=== PATIENT | female | born 1955 | race Caucasian/White ===

== ENCOUNTER 2021-07-03 14:10 | Emergency (ER) | payer MEDICARE, SELFPAY ==
[2021-07-03 14:11] VITALS: BP 124/70; PULSE 89; RESP 18; TEMP 35.8; O2SAT 97; BMI 28.9
--- NOTE | 2021-07-03 14:25 | RAD_ITS ---
EXAM: XR SACRUM AND COCCYX, 2 OR MORE VIEWS CLINICAL INDICATION: trauma PAIN TECHNIQUE: Frontal and lateral views of the sacrum and coccyx. This report was created using [employer] report generation technology. COMPARISON: None. FINDINGS: SACRUM/COCCYX: Unremarkable. No displaced fracture. No destructive or sclerotic lesions. Note that overlapping bowel shadows may however obscure fine detail in the frontal view. Sacroiliac joints are unremarkable. DISC SPACES: Degenerative findings of the hips. Degenerative findings in the lumbar spine. SOFT TISSUES: Unremarkable. No soft tissue swelling or gas. VASCULATURE: There are calcified phleboliths in the pelvis. This makes differentiation with distal ureteral stones difficult. RAD/Sacrum-Coccyx min 2 Views IMPRESSION: Degenerative findings of the hips. Electronically Signed: Basilio Peralta MD at 14:58 EDT Reading Location ID and State: [facility] / [place] , Service support ,
--- NOTE | 2021-07-03 14:32 | EX.ED.UPPERE ---
HPI History of Present Illness HPI Narrative: Patient fell down the steps, she dislocated PIP joints of her right fifth digit she also fell onto her buttocks and has coccyx pain. She has an abrasion to the left forearm. No head injury no neck pain no loss of consciousness. This was a mechanical fall. No other injury. Chief Complaint: Upper Extremity Injury PFSH PFS Home Medications naproxen [Naprosyn] 500 mg PO BID #10 tab 07/03/21 [Rx Last Taken Unknown] Allergy/AdvReac Type Severity Reaction Status Date / Time rhubarb Allergy Hives Verified 07/03/21 14:11 Social History Smoking Status: Unknown if ever smoked ROS ROS ED ROS Narrative Social: Noncontributory Medications: Reviewed Past medical history: Reviewed Review of systems General: Patient has no head injury or loss of consciousness HEENT: No facial injury Neck: No neck pain Cardiovascular: Patient denies any chest pain or palpitations Chest wall: No chest wall contusions Respiratory: There is no shortness of breath GI: There is no nausea vomiting diarrhea or abdominal pain, no abdominal wall contusions Skin: No lacerations. Left forearm abrasion Neurological: Patient has no memory loss, confusion, or any focal weakness Psychiatric: No recent behavioral changes Back: No back pain, coccyx pain as in HPI Musculoskeletal: Right fifth digit pain and deformity All other systems are reviewed and normal EXAM Physical Exam Narrative Exam Narrative: Physical exam Vitals reviewed General: Patient appears uncomfortable HEENT: No facial injury Head: No head injury Eyes: Extraocular movements intact Neck: No C-spine tenderness with full range of motion Heart: Regular rate normal pulses Chest wall: No chest wall pain Lungs clear lungs bilaterally with normal inspiration and expiration without tachypnea GI: Abdomen is soft and nontender there is no mass no guarding no abdominal wall contusion : Stable pelvis Musculoskeletal: Right fifth digit shows a ulnar deviation of the PIP joint with normal distal capillary refill. There is also tenderness over the coccyx. There is an abrasion of the left forearm but no bony tenderness. Skin: As above Neurological: Patient is alert and oriented with no focal deficits Const Vital Signs: 07/03/21 14:11 Temperature 96.5 F L Temperature Source Temporal Pulse Rate 89 Respiratory Rate 18 Blood Pressure 124/70 H Blood Pressure Mean 88 Pulse Ox 97 Oxygen Delivery Method Room Air MDM MDM MDM Narrative Medical decision making narrative: Patient's x-rays are unremarkable except for very slight avulsion fracture volarly at the PIP region patient will be discharged with trice taping. Radiography Diagnostic Testing: X-ray coccyx does not show a fracture. This is read by emergency doctor X-ray finger shows a very small avulsion at the PIP joint. X-rays read by emergency doctor Procedures Other Procedures Procedure(s): Finger reduction Verbal consent obtained Patient requested no digital block Traction was used and finger was reduced. Patient tolerated procedure well Discharge Plan Triage Chief Complaint: Upper Extremity Injury ED Provider: Tomi Li Dx/Rx/DC Orders Clinical Impression: Dislocated finger, Coccygeal contusion Instructions: ED Coccyx or Sacrum Contusion, ED Finger Dislocation Prescriptions: New naproxen [Naprosyn] 500 mg tablet 500 mg PO BID Qty: 10 RF: 0 Primary Care Provider: Care Physician,No Primary Referrals: Care Physician,No Primary [Primary Care Provider] - 2 Days Disposition Disposition: Home, Self Care
[2021-07-03] MEDS: oxyCODONE 5 MG Tablet PO (14:35)
--- NOTE | 2021-07-03 14:38 | RAD_ITS ---
STUDY: X-RAY - RIGHT HAND, ATTENTION FIFTH FINGER REASON FOR EXAM: Female, 66 years old. trauma, pain TECHNIQUE: 3 view(s) of the finger were obtained. COMPARISON: None. FINDINGS: Normal metacarpal head. Normal metacarpophalangeal joint. Normal proximal phalanx. Avulsion fracture the base of the fifth middle phalanx, volar side. Normal distal phalanx. Normal proximal interphalangeal joint. Normal distal interphalangeal joint. RAD/Finger(s) Min 2 Views IMPRESSION: Avulsion fracture at the volar base of the fifth middle phalanx. Electronically Signed: Jose Coon MD ([place]) at 15:09 EDT ,
[2021-07-03 15:22] VITALS: BP 124/75; PULSE 80; RESP 16; O2SAT 97
== END 2021-07-03 15:20 | disposition home or self-care (01) ==
PROVIDERS: Emergency Provider Emergency Medicine; Visit Provider Emergency Medicine
DX: S63.286A Dislocation of proximal interphalangeal joint of right little finger, initial encounter (principal); S30.0XXA Contusion of lower back and pelvis, initial encounter; W10.9XXA Fall (on) (from) unspecified stairs and steps, initial encounter
CPT/HCPCS: 72220; 73140; 99283